=== PATIENT | female | born 1960 | race Caucasian/White ===

== ENCOUNTER 2017-08-12 12:25 | Emergency (ER) | payer MEDICAID ==
[~2017-08-12] VITALS: Ht 157.5 cm; Wt 68.9 kg
[2017-08-12 12:27] VITALS: BP 129/90
== END 2017-08-12 12:58 | disposition home or self-care (01) ==
LOC: ED 12:50
DX: G89.29 Other chronic pain (principal); M54.5 Low back pain; M79.661 Pain in right lower leg; Z76.0 Encounter for issue of repeat prescription
CPT/HCPCS: 99283

== ENCOUNTER 2017-08-15 15:06 | Emergency (ER) | payer MEDICAID ==
[~2017-08-15] VITALS: Ht 157.5 cm; Wt 70.6 kg
[2017-08-15 15:50] VITALS: BP 134/85
== END 2017-08-15 15:53 | disposition home or self-care (01) ==
LOC: ED 15:23
DX: G89.29 Other chronic pain (principal); M54.6 Pain in thoracic spine; M54.5 Low back pain; Z76.0 Encounter for issue of repeat prescription
CPT/HCPCS: 99283

== ENCOUNTER 2017-08-20 15:58 | Emergency (ER) | payer MEDICAID ==
[~2017-08-20] VITALS: Ht 157.5 cm; Wt 69.8 kg
[2017-08-20 16:08] VITALS: BP 149/91
== END 2017-08-20 16:46 | disposition home or self-care (01) ==
LOC: ED 16:38
DX: G89.29 Other chronic pain (principal); M54.9 Dorsalgia, unspecified; Z76.0 Encounter for issue of repeat prescription
CPT/HCPCS: 99281

== ENCOUNTER 2017-11-12 14:42 | Emergency (ER) | payer MEDICAID ==
[~2017-11-12] VITALS: Ht 157.5 cm; Wt 67.5 kg
[2017-11-12 14:48] VITALS: BP 112/77
== END 2017-11-12 15:53 | disposition home or self-care (01) ==
LOC: ED 15:44
DX: E03.9 Hypothyroidism, unspecified (principal); M54.9 Dorsalgia, unspecified; G89.29 Other chronic pain; Z76.0 Encounter for issue of repeat prescription
CPT/HCPCS: 99283

== ENCOUNTER 2019-04-13 15:35 | Emergency (ER) | payer MEDICAID ==
[~2019-04-13] VITALS: Ht 157.5 cm; Wt 75.3 kg
[2019-04-13 15:56] VITALS: BP 110/60
--- NOTE | 2019-04-13 16:23 | NUR ---
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
--- NOTE | 2019-04-13 17:26 | NUR ---
Patient given discharge instructions and they have confirmed that they understand the instructions. Patient ambulatory with steady gait.
== END 2019-04-13 18:36 | disposition home or self-care (01) ==
LOC: ED 18:05
DX: D48.1 Neoplasm of uncertain behavior of connective and other soft tissue (principal); Z98.890 Other specified postprocedural states; Z87.891 Personal history of nicotine dependence; Z88.5 Allergy status to narcotic agent; Z88.8 Allergy status to other drugs, medicaments and biological substances
CPT/HCPCS: 99283

== ENCOUNTER 2019-04-30 14:40 | Emergency (ER) | payer MEDICAID ==
[~2019-04-30] VITALS: Ht 157.5 cm; Wt 75.7 kg
[2019-04-30] MEDS ORDERED: SODIUM CHLORIDE FLUSH 10ML SYR IVF ONE (15:00)
[2019-04-30 15:46] LABS: ALBUMIN 3.4 g/dL (3.4-5.0); ANION GAP 5 mmol/L (5-15); CALCIUM 8.8 mg/dL (8.5-10.1); CHLORIDE 109 mmol/L (98-107)
[2019-04-30 15:50] LABS: ALANINE AMINOTRANSFERASE 29 U/L (12-78); ALKALINE PHOSPHATASE 86 U/L (45-117); BILIRUBIN,TOTAL 0.3 mg/dL (0.2-1.0); CREATININE 0.84 mg/dL (0.55-1.02); TOTAL PROTEIN 7.3 g/dL (6.4-8.2)
[2019-04-30 16:03] LABS: MEAN CORPUSCULAR HEMOGLOBIN 30.1 pg (27.0-34.8); MEAN CORPUSCULAR HGB CONC 32.7 g/dL (32.4-35.8); MEAN CORPUSCULAR VOLUME 92.2 fL (80-100); RED BLOOD COUNT 4.34 x10^6/uL (3.82-5.3); RED CELL DISTRIBUTION WIDTH 14.6 % (9.6-15.2)
[2019-04-30 16:22] LABS: <PLATELET ESTIMATE> ADEQUATE; <RBC MORPHOLOGY> NORMAL; BASOPHILS # (AUTO) 0.02 x10^3/uL (0-0.1); BASOPHILS % (AUTO) 0 % (0-1); EOSINOPHILS # (AUTO) 0.18 x10^3/uL (0-0.4); EOSINOPHILS % (AUTO) 2 % (1-7); GIANT PLATELETS 1+; LYMPHOCYTES # (AUTO) 2.65 x10^3/uL (1-3.4); LYMPHOCYTES % (AUTO) 35 % (22-44); MD MORPH REVIEW ONLY; MEAN PLATELET VOLUME 13.9 fL (7.4-10.4); MONOCYTES % (AUTO) 9 % (2-9); NEUTROPHILS # (AUTO) 4.01 x10^3/uL (1.8-6.8); NEUTROPHILS % (AUTO) 53 % (42-75); PLATELET COUNT 164 x10^3/uL (130-400)
--- NOTE | 2019-04-30 17:25 | NUR ---
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
[2019-04-30] MEDS ORDERED: LEVO50TA5 PO (17:40)
--- NOTE | 2019-04-30 17:40 | NUR ---
ASSUMED CARE OF PATIENT. 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 PT ALSO REPORTS EPIGASTRIC ABD PAIN. PT REPORTS SHE HAS A ULCER X6 MONTHS. VS STABLE. NO ACUTE DISTRESS NOTED. DR OROZCO IN ROOM. CALL LIGHT IN PLACE. WILL CONTINUE TO MONITOR.
--- NOTE | 2019-04-30 18:26 | NUR ---
UA COLLECTED AND SENT.
[2019-04-30 18:37] LABS: HCG UR SG 1.029 (1.003-1.030)
[2019-04-30 18:38] LABS: CULTURE INDICATED? YES; MICROSCOPIC INDICATED
[2019-04-30 19:16] VITALS: BP 147/72
== END 2019-04-30 19:19 | disposition home or self-care (01) ==
LOC: ED 18:17
DX: R10.13 Epigastric pain (principal); Z87.891 Personal history of nicotine dependence; Z72.89 Other problems related to lifestyle
CPT/HCPCS: 36415; 80053; 81001; 81025; 83690; 85025; 87086; 99283